=== PATIENT | male | born 1980 | race African-American/Black ===

== ENCOUNTER 2017-01-11 20:40 | Emergency (ER) | payer OTHER ==
[~2017-01-11] VITALS: Ht 188 cm; Wt 104.3 kg
[~2017-01-11 20:40] MED LIST: ACCUNEB1.25 MG/3; IBUPROFEN 800800 MG PO; NAPROSYN500 MG PO; NEXIUM40 MG PO; NORFLEX100 MG PO; ULTRAM 50MG TAB50 MG PO; ZANTAC 150MG T150 M1 PO; ZPAK PO
[2017-01-11] MEDS ORDERED: IBUPROFEN 800800 M1 PO (22:08)
[2017-01-11 22:25] VITALS: BP 110/63
== END 2017-01-11 22:42 | disposition home or self-care (01) ==
LOC: ER 20:40
DX: J02.8 Acute pharyngitis due to other specified organisms (principal); B97.89 Other viral agents as the cause of diseases classified elsewhere; F17.210 Nicotine dependence, cigarettes, uncomplicated; F10.99 Alcohol use, unspecified with unspecified alcohol-induced disorder